=== PATIENT | female | born 1970 | race Asian ===

== ENCOUNTER 2017-03-31 08:04 | Day surgery (SDC) | payer MEDICAID, OTHER ==
[~2017-03-31] VITALS: Ht 157.5 cm; Wt 81.8 kg
[~2017-03-31 08:04] MED LIST: ASPI81 PO; SODIUM CHLORIDE 0.9% 1,000 ML IV ONE; TRAZ-144 PO
[2017-03-31] MEDS ORDERED: PROPOFOL 1% 20 ML VIAL IVP ONE (08:05)
[2017-03-31] MEDS ORDERED: SODIUM CHLORIDE 0.9% 1,000 ML IV ONE (08:34)
[2017-03-31] MEDS ORDERED: MIDAZOLAM HCL 5 MG/ML VIAL ONE (08:34)
[2017-03-31] MEDS ORDERED: FentaNYL CITRATE-PF 100 MCG/2 ML VIAL ONE (08:34)
== END 2017-03-31 11:30 | disposition home or self-care (01) ==
LOC: SURGERY 08:04
PROVIDERS: ATTEND Internal Medicine Gastroenterology
DX: R19.5 Other fecal abnormalities (principal); Q90.9 Down syndrome, unspecified; F32.9 Major depressive disorder, single episode, unspecified; Z86.711 Personal history of pulmonary embolism; Z86.718 Personal history of other venous thrombosis and embolism; Z79.82 Long term (current) use of aspirin; Z90.49 Acquired absence of other specified parts of digestive tract
CPT/HCPCS: 36415; 45378; 84703; J2704; J7030; J2250; J3010